=== PATIENT | female | born 1980 | race Hispanic/Latino ===

== ENCOUNTER 2019-07-09 10:00 | Observation (INO) | payer BC ==
[~2019-07-09] VITALS: Ht 162.6 cm; Wt 72.6 kg
[2019-07-09 13:15] LABS: BASOPHILS % (AUTO) 0.3 % (0.0-5.0); EOSINOPHILS % (AUTO) 0.9 % (0.0-8.0); HEMATOCRIT 38.4 % (36-48); LYMPHOCYTES % (AUTO) 27.1 % (21.0-51.0); MEAN CORPUSCULAR HEMOGLOBIN 28.6 pg (27.0-33.0); MEAN CORPUSCULAR HGB CONC 33.1 g/dL (32.0-36.0); MEAN CORPUSCULAR VOLUME 86.5 fL (79-99); MONOCYTES % (AUTO) 5.6 % (3.0-13.0); NEUTROPHILS % (AUTO) 65.9 % (40.0-77.0); PLATELET COUNT (AUTO) 332 K/uL (130-400); RED BLOOD CELL COUNT(AUTO) 4.44 MIL/uL (4.00-5.50); RED CELL DISTRIBUTION WIDTH 13.3 % (11.0-15.5); WHITE BLOOD COUNT (AUTO) 8.8 K/uL (4.8-10.8)
[2019-07-09 13:25] VITALS: BP 120/82
[2019-07-10] VITALS (19 sets, daily range): BP systolic 93–131; BP diastolic 56–82
[2019-07-10] MEDS ORDERED: CEFAZOLIN SODIUM 1 GM VIAL ONE (06:41)
[2019-07-10] MEDS: LACTATED RINGERS 1000ML 1,000 ML IV SCH ×2 (06:43→09:00)
--- NOTE | 2019-07-10 07:00 | NUR ---
SX TEDS /SCD APPLIED TO BLE
[2019-07-10] MEDS ORDERED: CEFAZOLIN SODIUM 1 GM VIAL IVP ONE (08:00)
[2019-07-10] MEDS ORDERED: DEXAMETHASONE SOD PHOSPHATE 10MG/ML 1ML VIAL ONE (08:21)
[2019-07-10] MEDS ORDERED: MIDAZOLAM HCL 1 MG/ML 2ML VIAL ONE (08:21)
[2019-07-10] MEDS ORDERED: ONDANSETRON HCL 4 MG/2 ML VIAL ONE (08:21)
[2019-07-10] MEDS ORDERED: LIDOCAINE PF 2% 5ML ABBOJECT ONE (08:21)
[2019-07-10] MEDS ORDERED: FENTANYL CITRATE PF 50 MCG/1 ML 2ML VIAL ONE ×3 (08:22→10:23)
[2019-07-10] MEDS ORDERED: ROCURONIUM 10MG/1ML SYR 10 MG/ML ML ONE (08:22)
[2019-07-10] MEDS ORDERED: PROPOFOL 10 MG/ML 20ML VIAL IV ONE (08:22)
[2019-07-10] MEDS ORDERED: OCTYL 2-CYANOACRYLATE 1 EACH TP ONE (09:45)
[2019-07-10] MEDS ORDERED: GLYCOPYRROLATE 1 MG/5 ML SYRINGE ONE (09:59)
[2019-07-10] MEDS ORDERED: NEOSTIGMINE 5MG/5ML SYR IV ONE (09:59)
[2019-07-10] MEDS ORDERED: RACEPINEPHRINE HCL 2.25% 0.5 ML NEB SOLN ONE (10:13)
[2019-07-10] MEDS ORDERED: MEPERIDINE-PF 25 MG/ML SYG ONE ×2 (10:32→10:41)
--- NOTE | 2019-07-10 12:30 | NUR ---
applied cold packs to perineum Addendum: 07/10/19 at 1736 by RASHMI BENAVIDES RN Amended: Links added.
[2019-07-10] MEDS ORDERED: IBUPROFEN 600 MG TABLET PO PRN (12:45)
[2019-07-10] MEDS ORDERED: ONDANSETRON HCL 4 MG/2 ML VIAL IVP PRN (12:45)
[2019-07-10] MEDS ORDERED: MEPERIDINE-PF 75 MG/ML SYG IM PRN (12:45)
[2019-07-10] MEDS ORDERED: PROMETHAZINE HCL 25 MG/ML 1ML AMPULE IM PRN (12:45)
[2019-07-10] MEDS ORDERED: BISACODYL 10 MG SUPP.RECT RC PRN (12:45)
[2019-07-10] MEDS: ACETAMINOPHEN-CODEINE 300/30MG TAB PO PRN (13:04)
[2019-07-10] MEDS ORDERED: MEPERIDINE-PF 100 MG/ML SYG ONE ×2 (14:20→19:07)
[2019-07-10] MEDS: PROMETHAZINE HCL 25 MG/ML 1ML AMPULE IM PRN ×2 (14:25→19:14)
[2019-07-10] MEDS: DEXTROSE 5 %-0.45 % NACL 1,000 ML IV PRN ×2 (16:03→20:17)
[2019-07-10] MEDS: SIMETHICONE 80 MG TAB.CHEW PO PRN (21:25)
[2019-07-10] MEDS: DOCUSATE SODIUM 100 MG CAP PO PRN (21:25)
[2019-07-11] MEDS: ACETAMINOPHEN-CODEINE 300/30MG TAB PO PRN ×3 (02:12→11:23)
[2019-07-11 04:10] VITALS: BP 104/57
[2019-07-11 05:24] LABS: HEMATOCRIT 35.3 % (36-48); MEAN CORPUSCULAR HEMOGLOBIN 28.6 pg (27.0-33.0); MEAN CORPUSCULAR HGB CONC 33.4 g/dL (32.0-36.0); MEAN CORPUSCULAR VOLUME 85.7 fL (79-99); PLATELET COUNT (AUTO) 324 K/uL (130-400); RED BLOOD CELL COUNT(AUTO) 4.12 MIL/uL (4.00-5.50); WHITE BLOOD COUNT (AUTO) 18.8 K/uL (4.8-10.8)
[2019-07-11 07:31] VITALS: BP 120/79
[2019-07-11] MEDS: SIMETHICONE 80 MG TAB.CHEW PO PRN ×3 (07:42→20:58)
[2019-07-11] MEDS: DOCUSATE SODIUM 100 MG CAP PO PRN ×2 (07:42→20:58)
--- NOTE | 2019-07-11 08:15 | NUR ---
PHYSICIAN ROUNDING DR. AMIN AT BEDSIDE TO ASSESS AND TALK TO PT. INSTRUCTIONS GIVEN ON POST OP CARE AND BLADDER TRAINING. PT VERBALIZED UNDERSTANDING. WILL CONTINUE TO REINFORCE TEACHING THROUGHOUT SHIFT.
[2019-07-11] MEDS: IBUPROFEN 800 MG TAB PO PRN ×2 (10:13→18:25)
[2019-07-11] MEDS ORDERED: NITROFURANTOIN MONOHYD/M-CRYST 100 MG CAPSULE PO SCH (10:45)
[2019-07-11 11:26] VITALS: BP 118/70
--- NOTE | 2019-07-11 19:50 | NUR ---
SUPRA PUBIC CATH REMAIN CLAMPED; PT. UNABLE TO VOID ON HER OWN.
[2019-07-11 20:04] VITALS: BP 102/72
[2019-07-11] MEDS: NITROFURANTOIN MONOHYD/M-CRYST 100 MG CAPSULE PO SCH (20:48)
[2019-07-11] MEDS ORDERED: ACETAMINOPHEN-CODEINE 300/30MG TAB PO PRN (21:00)
--- NOTE | 2019-07-11 21:30 | NUR ---
SPC CONNECTED TO BEDSIDE GRAINAGE BAG FOR THE IGHT. Addendum: 07/12/19 at 0735 by ASAD MAHARAJ RN RN FOR THE NIGHT.
[2019-07-11 23:29] VITALS: BP 98/57
[2019-07-12 03:37] VITALS: BP 90/51
[2019-07-12 07:53] VITALS: BP 95/52
[2019-07-12] MEDS: NITROFURANTOIN MONOHYD/M-CRYST 100 MG CAPSULE PO SCH (08:11)
[2019-07-12] MEDS: DOCUSATE SODIUM 100 MG CAP PO PRN (08:11)
[2019-07-12] MEDS: SIMETHICONE 80 MG TAB.CHEW PO PRN (08:11)
[2019-07-12] MEDS: IBUPROFEN 800 MG TAB PO PRN (08:12)
[2019-07-12] MEDS ORDERED: ACET1TAB12 PO (10:52)
[2019-07-12] MEDS ORDERED: NITR100C4 PO (10:52)
--- NOTE | 2019-07-12 11:15 | NUR ---
Verbal and written discharge instructions given, informed of the follow up appointment, prescription given. all questions answered, informed to call the doctor for any concerns. pt voiced understanding to all things discussed. Addendum: 07/12/19 at 1127 by RASHMI BENAVIDES RN Amended: Links added.
[2019-07-12 12:01] VITALS: BP 124/66
--- NOTE | 2019-07-12 12:11 | NUR ---
pt is dismissed in stable condition, brought to private car via wheelchair by maikol Vogel pcp Addendum: 07/12/19 at 1211 by RASHMI BENAVIDES RN Amended: Links added.
== END 2019-07-12 12:10 | disposition home or self-care (01) ==
LOC: DAHIP 07-10 05:30 → EDSTATUS 07-10 10:00 → WSH 07-10 11:20
PROVIDERS: ADMIT Obstetrics & Gynecology; ATTEND Obstetrics & Gynecology
DX: N81.2 Incomplete uterovaginal prolapse (principal); D25.2 Subserosal leiomyoma of uterus; N92.1 Excessive and frequent menstruation with irregular cycle; N39.3 Stress incontinence (female) (male); K46.9 Unspecified abdominal hernia without obstruction or gangrene; E11.9 Type 2 diabetes mellitus without complications; Z85.43 Personal history of malignant neoplasm of ovary
CPT/HCPCS: 36415 ×2; 57260; 58263; 84703; 85025; 85027; 86850; 86900; 86901; 88305; 88307; 94640; 96372; 96374; A4215; A4221; A4222; A4223; A4351; A4510; A4600; A4606; A4663; A6260; C1771; G0378 ×53; J0690; J1100; J2001; J2175 ×4; J2250; J2405 ×2; J2550 ×2; J2704; J2710; J3010 ×3; J3490; J7120 ×2

== ENCOUNTER 2019-07-20 21:33 | Emergency (ER) | payer BC ==
[~2019-07-20 21:33] MED LIST: ACET1TAB12 PO; NITR100C4 PO
[2019-07-20 22:17] LABS: BASOPHILS % (AUTO) 0.2 % (0.0-5.0); EOSINOPHILS % (AUTO) 0.2 % (0.0-8.0); HEMATOCRIT 35.7 % (36-48); LYMPHOCYTES % (AUTO) 10.6 % (21.0-51.0); MEAN CORPUSCULAR HEMOGLOBIN 28.8 pg (27.0-33.0); MEAN CORPUSCULAR HGB CONC 33.9 g/dL (32.0-36.0); MONOCYTES % (AUTO) 5.2 % (3.0-13.0); NEUTROPHILS % (AUTO) 83.4 % (40.0-77.0); PLATELET COUNT (AUTO) 421 K/uL (130-400); RED CELL DISTRIBUTION WIDTH 12.8 % (11.0-15.5); WHITE BLOOD COUNT (AUTO) 14.6 K/uL (4.8-10.8)
[2019-07-20 22:23] LABS: APPEARANCE,URINE Clear (CLEAR); BILIRUBIN,URINE Negative (NEGATIVE); COLOR,URINE Yellow (YELLOW); GLUCOSE, URINE (UA) Negative (NEGATIVE); KETONES,URINE Negative (NEGATIVE); LEUKOCYTE ESTERASE ,URINE Trace (NEGATIVE); NITRATE,URINE Negative (NEGATIVE); OCCULT BLOOD,URINE Negative (NEGATIVE); PH,URINE 6.5 (5.0-8.0); PROTEIN,URINE Negative (NEGATIVE); UROBILINOGEN,URINE 0.2 mg/dL (0.2-1.0)
[2019-07-20 22:24] LABS: CREATININE 0.6 mg/dL (0.5-1.5); POTASSIUM 3.4 mmol/L (3.5-5.1)
[2019-07-20 22:30] LABS: BACTERIA,URINE None Seen /HPF (None Seen); RBC,URINE None Seen /HPF (0-1); SQUAMOUS EPITHELIAL CELL,UR Rare /HPF (0-2); WBC,URINE 0-1 /HPF (0-1)
== END 2019-07-20 23:35 | disposition home or self-care (01) ==
LOC: EDH 21:33
DX: R33.9 Retention of urine, unspecified (principal); Z90.710 Acquired absence of both cervix and uterus; Z90.49 Acquired absence of other specified parts of digestive tract
CPT/HCPCS: 36415; 51702; 80048; 81001; 85025; 87088